=== PATIENT | female | born 1930 | race Caucasian/White ===

== ENCOUNTER 2017-02-11 01:52 | Emergency (ER) | payer MEDICARE ==
[2017-02-11] MEDS ORDERED: (Novolin R) Insulin Human Regular 100 units/ml vial SC ONE (02:17)
[2017-02-11] MEDS ORDERED: (Novolin R) Insulin Human Regular 100 units/ml vial ONE (02:51)
[2017-02-11 03:01] LABS: BASO % 0.4 % (0.0-2.0); EOS # 0.2 K/uL (0.0-0.7); EOS % 2.6 % (0.0-4.0); HEMOGLOBIN 13.2 g/dL (11.0-16.0); LYMPH # 2.1 K/uL (1.0-4.3); LYMPH % 31.2 % (20.0-40.0); MEAN CELL VOLUME 80.7 fL (81.0-99.0); MEAN CORPUSCULAR HEMOGLOBIN 25.9 pg (27.0-31.0); MEAN CORPUSCULAR HGB CONC 32.1 g/dL (33.0-37.0); MEAN PLATELET VOLUME 9.6 fL (7.2-11.7); MONO # 0.5 K/uL (0.0-0.8); MONO % 8.1 % (0.0-10.0); NEUT # 3.9 K/uL (1.8-7.0); NEUT % 57.7 % (50.0-75.0); RBC 5.1 Mil/uL (3.80-5.20); RED CELL DISTRIBUTION WIDTH 13.8 % (11.5-14.5); WHITE BLOOD COUNT 6.7 K/uL (4.8-10.8)
--- NOTE | 2017-02-11 03:26 | C.PDOC ---
History Of Present Illness 86 year old female with a Hx of diabetes who presents to the ER with a complaint of not feeling well. Patient has not taken her insulin in 3 days; denies nausea, vomiting, weakness, numbness, or SOB. Chief Complaint (Nursing): High Blood Sugar History Per: Patient History/Exam Limitations: no limitations Onset/Duration Of Symptoms: Days Current Symptoms Are (Timing): Still Present Current Diabetic Medications: Insulin Causative (Exacerbating) Factor(s): Missed Taking Medication Associated Infectious Symptoms: denies: Nausea, Vomiting Treatment Prior To Provider Evaluation: Accucheck Recent travel outside of the [place]: No Past Medical History Reviewed: Historical Data, Nursing Documentation, Vital Signs Vital Signs: Last Vital Signs Temp 97.9 F 02/11/17 05:05 Pulse 67 02/11/17 05:05 Resp 18 02/11/17 05:05 BP 111/69 02/11/17 05:05 Pulse Ox 98 02/11/17 06:16 - Medical History PMH: Arthritis, Asthma, Back Problems, Diabetes, HTN, Osteoporosis Surgical History: Appendectomy, Cholecystectomy - [facility] Procedures INJECT/INFUSE NEC (08/24/13) Family History: States: Unknown Family Hx - Social History Hx Tobacco Use: No Hx Alcohol Use: No Hx Substance Use: No - Immunization History Hx Tetanus Toxoid Vaccination: No Hx Influenza Vaccination: Yes Hx Pneumococcal Vaccination: No Review Of Systems Constitutional: Positive for: Malaise. Negative for: Fever, Chills Gastrointestinal: Negative for: Nausea, Vomiting, Diarrhea Physical Exam - Physical Exam Appears: Non-toxic, No Acute Distress, Other (Alert, awake, and conscious) Skin: Normal Color, Warm, Dry Head: Atraumatic, Normacephalic Oral Mucosa: Moist Neck: Normal, Supple Chest: Symmetrical, No Tenderness Cardiovascular: Rhythm Regular, No Murmur Respiratory: Normal Breath Sounds, No Rales, No Rhonchi, No Wheezing Gastrointestinal/Abdominal: Soft, No Tenderness Extremity: Normal ROM (x4) Neurological/Psych: Oriented x3, Normal Speech, Normal Cognition, Other (No focal deficits) ED Course And Treatment - Laboratory Results Result Diagrams: 02/11/17 02:58 02/11/17 05:35 O2 Sat by Pulse Oximetry: 98 (Room air ) Pulse Ox Interpretation: Normal Progress Note: Blood work ordered. Insulin administered. Disposition Counseled Patient/Family Regarding: Diagnosis - Disposition Referrals: [facility] [Outside] Disposition: HOME/ ROUTINE Disposition Time: 06:18 Condition: STABLE Additional Instructions: increased fluids by mouth Prescriptions: Insulin Lispro [Humalog Kwikpen U-100] 4 - 5 unit SQ AC #1 insuln.pen Instructions: Diabetes Mellitus Type 1 in Adults (ED) Forms: [facility] (Slovak) - POA Present On Arrival: Poor Glycemic Control - Clinical Impression Clinical Impression: Hyperglycemia, Diabetes mellitus - Scribe Statement The provider has reviewed the documentation as recorded by the Scribe Damon Lee All medical record entries made by the Scribe were at my direction and personally dictated by me. I have reviewed the chart and agree that the record accurately reflects my personal performance of the history, physical exam, medical decision making, and the department course for this patient. I have also personally directed, reviewed, and agree with the discharge instructions and disposition.
[2017-02-11 03:29] LABS: ALBUMIN 3.8 g/dL (3.5-5.0)
[2017-02-11 03:32] LABS: ALB/GLOB RATIO 1.2 (1.0-2.1); AST/SGOT 28 U/L (14-36); GFR AFRICAN-AMERICAN > 60; GFR NON-AFRICAN AMERICAN 53
[2017-02-11 03:33] LABS: ALT/SGPT 39 U/L (9-52); BLOOD UREA NITROGEN 42 mg/dL (7-17); CALCIUM 9.9 mg/dl (8.6-10.4)
[2017-02-11] MEDS ORDERED: Sodium Chloride 0.9% 1,000 ML IV ONE (03:40)
[2017-02-11] MEDS ORDERED: Sodium Chloride 0.9% 500 ML IV ONE ×2 (03:40→04:43)
[2017-02-11 05:05] VITALS: RESP 18
[2017-02-11] MEDS ORDERED: Sodium Chloride 0.9% 1,000 ML ONE (05:23)
[2017-02-11 06:10] LABS: BLOOD UREA NITROGEN 43 mg/dL (7-17); GFR AFRICAN-AMERICAN > 60; GFR NON-AFRICAN AMERICAN 60
[2017-02-11 06:11] LABS: CALCIUM 9.1 mg/dl (8.6-10.4)
[2017-02-11 06:28] VITALS: BP 116/63; PULSE 65; TEMP 97.7; O2SAT 96
== END 2017-02-11 06:29 | disposition home or self-care (01) ==
LOC: C.ER 01:52
DX: E11.65 Type 2 diabetes mellitus with hyperglycemia (principal); Z79.4 Long term (current) use of insulin
CPT/HCPCS: 80053; 82948; 85025; 96360; 96372; 99284; J7040

== ENCOUNTER 2018-10-06 01:45 | Emergency (ER) | payer MEDICARE ==
[2018-10-06] MEDS ORDERED: Sodium Chloride 0.9% 1,000 ML IV ONE (02:25)
--- NOTE | 2018-10-06 02:48 | C.PDOC ---
History Of Present Illness 88 year old female with Hx of arthritis, diabetes, HTN, chronic pain, presents reporting chronic pain for years. Patient has been seen previously in the ER for similar. Patient noted to have high blood sugar on arrival to ER. She reports pain to her back and extremities and notes a chronic cough for a month. Denies other complaints. Time Seen by Provider: 10/06/18 02:20 Chief Complaint (Nursing): Back Pain History Per: Patient History/Exam Limitations: no limitations Onset/Duration Of Symptoms: Days Current Symptoms Are (Timing): Still Present Quality Of Discomfort: Unable To Describe Previous Symptoms: Chronic Pain Associated Symptoms: None Recent travel outside of the [place]: No Past Medical History Reviewed: Historical Data, Nursing Documentation, Vital Signs Vital Signs: Last Vital Signs Temp 97.6 F 10/06/18 02:00 Pulse 84 10/06/18 02:00 Resp 20 10/06/18 02:00 BP 178/70 H 10/06/18 02:00 Pulse Ox 98 10/06/18 02:00 - Medical History PMH: Arthritis, Asthma, Back Problems, Diabetes, HTN, Osteoporosis Surgical History: Appendectomy, Cholecystectomy - [facility] Procedures INJECT/INFUSE NEC (08/24/13) Family History: States: Unknown Family Hx - Social History Hx Tobacco Use: No Hx Alcohol Use: No Hx Substance Use: No - Immunization History Hx Tetanus Toxoid Vaccination: No Hx Influenza Vaccination: Yes Hx Pneumococcal Vaccination: No Review Of Systems Constitutional: Negative for: Fever, Chills Cardiovascular: Negative for: Chest Pain, Palpitations Respiratory: Positive for: Cough. Negative for: Shortness of Breath Gastrointestinal: Negative for: Nausea, Vomiting Musculoskeletal: Positive for: Arm Pain (Chronic), Back Pain (Chronic), Leg Pain (Chronic) Neurological: Negative for: Weakness, Numbness Physical Exam - Physical Exam Appears: Non-toxic, Other (Anxious) Skin: Normal Color, Warm Head: Atraumatic, Normacephalic Eye(s): bilateral: Normal Inspection Oral Mucosa: Moist Neck: Normal, Supple Chest: Symmetrical, No Tenderness Cardiovascular: Rhythm Regular Respiratory: Normal Breath Sounds, No Rales, No Rhonchi, No Wheezing Gastrointestinal/Abdominal: Soft, No Tenderness Neurological/Psych: Oriented x3, Normal Speech ED Course And Treatment - Laboratory Results Result Diagrams: 10/06/18 02:52 10/06/18 02:52 O2 Sat by Pulse Oximetry: 98 (Room air) Pulse Ox Interpretation: Normal Medical Decision Making Medical Decision Making: in er, i nad. chronic pain no new trauma neurovasc intact. long standing h/o of arthrisi. no unilateral leg swelling r/o dka Plan: * Blood work * CXR * UA * IV fluids * Toradol labs neg. pain improved. sleeping innad. no e/o of dka. cxr neg as read by me. stable for dc Disposition - Disposition Disposition: HOME/ ROUTINE Disposition Time: 05:00 Condition: STABLE Additional Instructions: follow up with you rdoctor/clinic. return to any er with worsening symptoms or concerns. Prescriptions: Naproxen 500 mg PO BID PRN #14 tab PRN Reason: Pain, Mild (1-3) Instructions: Hyperglycemia, Adult, Chronic Pain (DC) Forms: [employer] (Swazi) - Clinical Impression Clinical Impression: Chronic pain, Hyperglycemia - Scribe Statement The provider has reviewed the documentation as recorded by the Scribosmar Lee All medical record entries made by the Scribosmar were at my direction and personally dictated by me. I have reviewed the chart and agree that the record accurately reflects my personal performance of the history, physical exam, medical decision making, and the department course for this patient. I have also personally directed, reviewed, and agree with the discharge instructions and disposition.
[2018-10-06] MEDS ORDERED: Sodium Chloride 0.9% 1,000 ML ONE (02:50)
[2018-10-06 02:57] LABS: BASO % 0.5 % (0.0-2.0); EOS # 0.1 K/uL (0.0-0.7); HEMOGLOBIN 13.3 g/dL (11.0-16.0); LYMPH # 1.2 K/uL (1.0-4.3); MEAN CELL VOLUME 82.2 fL (81.0-99.0); MONO # 0.4 K/uL (0.0-0.8); NEUT # 2.3 K/uL (1.8-7.0)
[2018-10-06 03:01] LABS: SQUAMOUS EPITHIAL 1 /hpf (0-5); URINE BILIRUBIN NEGATIVE (NEGATIVE); URINE BLOOD NEGATIVE (NEGATIVE); URINE CLARITY Clear (Clear); URINE COLOR Straw (YELLOW); URINE GLUCOSE (UA) 3+ mg/dL (Normal); URINE LEUKOCYTE ESTERASE NEG Leu/uL (Negative); URINE PROTEIN NEGATIVE (NEGATIVE); URINE UROBILINOGEN NORMAL mg/dL (0.2-1.0)
[2018-10-06 03:12] LABS: EOS % 1.5 % (0.0-4.0); LYMPH % 30.8 % (20.0-40.0); MEAN CORPUSCULAR HEMOGLOBIN 26.4 pg (27.0-31.0); MEAN CORPUSCULAR HGB CONC 32.2 g/dL (33.0-37.0); MONO % 8.8 % (0.0-10.0); NEUT % 58.4 % (50.0-75.0); RBC 5.02 Mil/uL (3.80-5.20); RED CELL DISTRIBUTION WIDTH 13.9 % (11.5-14.5)
[2018-10-06 03:14] LABS: INR 1.1; PROTHROMBIN TIME 12.2 SECONDS (9.7-12.2)
[2018-10-06 03:21] LABS: VENOUS BLOOD GAS PCO2 55 mmHg (40-60); VENOUS BLOOD GAS PO2 19 mm/Hg (30-55); VENOUS BLOOD PH 7.37 (7.32-7.43)
[2018-10-06 03:23] LABS: ALB/GLOB RATIO 1.5 (1.0-2.1); ALBUMIN 4.4 g/dL (3.5-5.0); ALT/SGPT 17 U/L (9-52); AST/SGOT 33 U/L (14-36); BLOOD UREA NITROGEN 18 mg/dL (7-17); CALCIUM 9.9 mg/dl (8.6-10.4); GFR NON-AFRICAN AMERICAN > 60
[2018-10-06] MEDS ORDERED: (Novolin R) Insulin Human Regular 100 units/ml vial IVP STA (03:32)
[2018-10-06] MEDS ORDERED: (Novolin R) Insulin Human Regular 100 units/ml vial ONE (03:42)
[2018-10-06 05:02] VITALS: BP 128/71; PULSE 75; RESP 18; TEMP 98.4
[2018-10-06 06:01] VITALS: O2SAT 98
--- NOTE | 2018-10-06 11:12 | RAD ---
Date of service: 10/06/2018 HISTORY: cough COMPARISON: 09/01/2016. FINDINGS: LUNGS: The lungs are well inflated and clear. PLEURA: No pleural effusions or pneumothorax. CARDIOVASCULAR: The heart is normal in size. There are aortic atherosclerotic calcifications present. OSSEOUS STRUCTURES: Within normal limits for the patient's age. VISUALIZED UPPER ABDOMEN: Normal. OTHER FINDINGS: None. IMPRESSION: No active pulmonary disease.
== END 2018-10-06 06:04 | disposition home or self-care (01) ==
LOC: C.ER 01:45
DX: G89.29 Other chronic pain (principal); E11.65 Type 2 diabetes mellitus with hyperglycemia
CPT/HCPCS: 71045; 80053; 81001; 82009; 82803; 82948; 85025; 85610; 85730; 96374; 96375; 99285; J1885; J7030